=== PATIENT | male | born 1975 | race Caucasian/White ===

== ENCOUNTER 2019-09-18 02:37 | Emergency (ER) | payer SELFPAY ==
[~2019-09-18] VITALS: Ht 180.3 cm; Wt 82.6 kg
--- NOTE | 2019-09-18 02:45 | NUR ---
PT BIBRA. PT AAOX4. AMBULATORY. PT C/O "IN BED. HEART WAS RACING. SHALLOW RESP. CHEST PAIN RADIATING TO LEFT ARM. PT DENIES PAIN AT THE MOMENT. -SOB. VSS. PT ABLE TO SANE RN MY HANDS AND PUSH AND PULL. PT APPEARS TO BE IN DISTRESS AND ANXIOUS. PLACED ON CONTINIOUS CARDIAC MONITORING AND PULSE OX. EKG S.R. AWAITING MD FOR EVAL. NO ACUTE DISTRESS NOTED.
--- NOTE | 2019-09-18 03:05 | NUR ---
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
[2019-09-18 03:23] LABS: BASOPHILS % (AUTO) 0.5 % (0.0-2.0); EOSINOPHILS % (AUTO) 2.6 % (0.0-6.0); HEMATOCRIT 46 % (39-51); HEMOGLOBIN 15.5 g/dL (13.5-17.5); LYMPHOCYTES # (AUTO) 1.2 /CMM (0.8-4.8); LYMPHOCYTES % (AUTO) 25.7 % (20.0-44.0); MEAN CORPUSCULAR HGB CONC 34 g/dl (31.0-36.0); MEAN CORPUSCULAR VOLUME 88 fL (80-96); MONOCYTES # (AUTO) 0.4 /CMM (0.1-1.30); NEUTROPHILS % (AUTO) 63.2 % (43.0-81.0); PLATELET COUNT (AUTO) 279 /CMM (150-450); RED BLOOD CELL COUNT(AUTO) 5.17 MIL/uL (4.5-6.0); WHITE BLOOD COUNT (AUTO) 4.7 K/uL (4.3-11.0)
[2019-09-18 03:24] LABS: CALCIUM, SERUM 8.9 mg/dL (8.5-10.1); CARBON DIOXIDE 26 mmol/L (21-32); CHLORIDE 105 mmol/L (98-107); CREATININE 1.1 mg/dL (0.6-1.3); GLUCOSE 115 mg/dL (74-106); POTASSIUM 3.6 mmol/L (3.5-5.1); SODIUM SERUM 140 mmol/L (136-145); UREA NITROGEN, BLOOD 15 mg/dL (7-18)
--- NOTE | 2019-09-18 03:27 | NUR ---
XRAY AT BEDSIDE
--- NOTE | 2019-09-18 03:28 | NUR ---
Patient is resting comfortably in bed with eyes open. Easily aroused. VSS.
--- NOTE | 2019-09-18 04:01 | NUR ---
Patient is resting comfortably in bed. Easily aroused. VSS.
[2019-09-18 05:18] VITALS: BP 113/66
--- NOTE | 2019-09-18 05:18 | NUR ---
Patient discharged to home in stable condition. Written and verbal after care instructions given. Patient verbalizes understanding of instruction. pt ambulatory with a steady gait. vss.
== END 2019-09-18 05:20 | disposition home or self-care (01) ==
LOC: ER 02:41
DX: R07.89 Other chest pain (principal); I10 Essential (primary) hypertension; E78.5 Hyperlipidemia, unspecified; Z98.890 Other specified postprocedural states
CPT/HCPCS: 36415; 71045-TC; 80048-TC; 84443-TC; 84484-TC; 85025-TC